=== PATIENT | female | born 1950 | race Caucasian/White ===

== ENCOUNTER 2016-11-09 14:17 | Emergency (ER) | payer MEDICARE, MEDICAID ==
[~2016-11-09] VITALS: Ht 160 cm; Wt 72.6 kg
[~2016-11-09 14:17] MED LIST: ALBUAER3 IN; CALC200S7; CALC600T80 PO; CITA20TA3 PO; FLU05NSL; FURO20TA3 PO; LAC30LQ PO; LEVO-28 PO; MONT10TA34 PO; OMEP20CA5 PO; SPIR50TA23 PO; TRAM-297 PO
[2016-11-09] MEDS ORDERED: SODIUM CHLORIDE 0.9% 250 ML IV ONE (15:43)
[2016-11-09] MEDS ORDERED: NALBUPHINE HCL 10 MG/1ml INJECTION IV ONE (15:45)
[2016-11-09] MEDS ORDERED: METOCLOPRAMIDE HCL 5MG/ml INJ 2ml VIAL IV ONE (15:45)
[2016-11-09 16:19] LABS: Hematocrit 41.4 % (36.0-46.0); Hemoglobin 14.1 g/dL (12.2-16.2); Mean Corpuscular Hemoglobin 32.3 pg (28.0-32.0); Mean Corpuscular Hgb Conc. 34.1 g/dL (32.0-36.0); Mean Corpuscular Volume 94.6 fL (80.0-100.0); Mean Platelet Volume 9.6 fL (7.4-10.4); Platelet Count (auto) 153 10^3/uL (140-450); Red Cell Distribution Width 15.6 % (11.6-16.0); White Blood Cell 5.4 10^3/uL (4.4-10.8)
[2016-11-09 16:27] LABS: Urine Bilirubin Negative (Negative); Urine Blood Negative /uL (Negative); Urine Color Yellow (Yellow); Urine Glucose Normal (Normal); Urine Hyaline Cast FEW /lpf (0 - 2); Urine Ketone Negative (Negative); Urine Nitrite Negative (Negative); Urine RBC <1 /hpf (0 - 4); Urine Squamous Epithelial Cell FEW /hpf (<5); Urine Urobilinogen Normal (Negative); Urine pH 6.5 (5.0-8.0)
[2016-11-09 16:36] LABS: Albumin 2.5 g/dL (3.4-5.0); BUN/Creatinine Ratio 15.7; Calcium 9.1 mg/dL (8.5-10.1)
[2016-11-09 16:39] LABS: Total Protein 6.5 g/dL (6.4-8.2)
[2016-11-09 16:52] LABS: Metamyelocytes % 0; Myelocytes % 0; Promyelocytes % 0; Reactive Lymphocytes 0
[2016-11-09 17:38] VITALS: BP 135/80
[2016-11-09 18:02] LABS: Anisocytosis Slight
[2016-11-09 18:08] LABS: Platelet Estimate Adequate
== END 2016-11-09 17:32 | disposition home or self-care (01) ==
LOC: EDBD 14:17 → ER 14:17
DX: M54.16 Radiculopathy, lumbar region (principal); M79.1 Myalgia; G89.29 Other chronic pain; M54.5 Low back pain; K74.60 Unspecified cirrhosis of liver; I25.810 Atherosclerosis of coronary artery bypass graft(s) without angina pectoris; I13.0 Hypertensive heart and chronic kidney disease with heart failure and stage 1 through stage 4 chronic kidney disease, or unspecified chronic kidney disease; J44.9 Chronic obstructive pulmonary disease, unspecified; N18.9 Chronic kidney disease, unspecified; I50.9 Heart failure, unspecified; Z86.73 Personal history of transient ischemic attack (TIA), and cerebral infarction without residual deficits; K21.9 Gastro-esophageal reflux disease without esophagitis; Z90.49 Acquired absence of other specified parts of digestive tract; G51.0 Bell's palsy; E43 Unspecified severe protein-calorie malnutrition; Z68.28 Body mass index [BMI] 28.0-28.9, adult
CPT/HCPCS: 36415; 71020; 72131; 80053; 81001; 83735; 84443; 85007; 85027; 96361; 96374; 96375; 99285; J2300; J2765; J7030

== ENCOUNTER 2016-11-25 18:51 | Emergency (ER) | payer MEDICARE, MEDICAID ==
[~2016-11-25] VITALS: Ht 162.6 cm; Wt 76.2 kg
[~2016-11-25 18:51] MED LIST changes: -OMEP20CA5 PO; +OMEP20CA74 PO
[2016-11-25 20:40] LABS: Basophils # (auto) 0 uL; Basophils % (auto) 0.3 % (0.0-2.0); DEFINITIVE VIEW TRANSMISSION; Eosinophils # (auto) 0 uL; Eosinophils % (auto) 0.2 % (0.0-7.0); Hematocrit 43.3 % (36.0-46.0); Hemoglobin 14.6 g/dL (12.2-16.2); Lymphocytes # (auto) 1.4 uL; Mean Corpuscular Hemoglobin 32.4 pg (28.0-32.0); Mean Corpuscular Hgb Conc. 33.7 g/dL (32.0-36.0); Mean Corpuscular Volume 96.2 fL (80.0-100.0); Mean Platelet Volume 10.4 fL (7.4-10.4); Monocytes # (auto) 1.7 uL; Monocytes % (auto) 17.4 % (0.0-12.0); Neutrophils # (auto) 6.8 uL; Neutrophils % (auto) 68.1 % (37.0-80.0); Platelet Count (auto) 207 10^3/uL (140-450); Red Cell Distribution Width 14.9 % (11.6-16.0)
[2016-11-25 20:52] LABS: Albumin 2.6 g/dL (3.4-5.0); Amylase 88 U/L (25-115); Anion Gap 14 (5-15); Aspartate Aminotransferase 30 U/L (15-37); BUN/Creatinine Ratio 25.2; Blood Urea Nitrogen 30 mg/dL (7-18); Carbon Dioxide 22 mmol/L (21-32); Chloride 107 mmol/L (98-107); GFR African American 58 mL/min; GFR Non-African American 48 mL/min; Glucose 112 mg/dL (74-106); Potassium 4.2 mmol/L (3.5-5.1); Sodium 143 mmol/L (136-145)
[2016-11-25 20:54] LABS: Alkaline Phosphatase 124 U/L (45-117); Bilirubin, Total 0.8 mg/dL (0.2-1.0); Total Protein 6.7 g/dL (6.4-8.2)
[2016-11-25 21:42] VITALS: BP 136/78
[2016-11-25] MEDS ORDERED: MORPHINE SULFATE 4 MG/ML SYRG IV ONE (22:00)
[2016-11-25] MEDS ORDERED: ONDANSETRON HCL 4 MG/2 ML VIAL IV ONE (22:00)
[2016-11-25 22:39] LABS: Urine Bilirubin Negative (Negative); Urine Blood Negative /uL (Negative); Urine Ca Oxalate Crystal FEW (None Seen); Urine Color Yellow (Yellow); Urine Glucose Normal (Normal); Urine Hyaline Cast MANY /lpf (0 - 2); Urine Ketone Negative (Negative); Urine Mucus FEW (None Seen); Urine Nitrite Negative (Negative); Urine RBC 1 /hpf (0 - 4); Urine Squamous Epithelial Cell FEW /hpf (<5); Urine Urobilinogen Normal (Negative); Urine pH 5.5 (5.0-8.0)
== END 2016-11-25 23:19 | disposition home or self-care (01) ==
LOC: EDBD 18:51 → ER 18:58
DX: K80.80 Other cholelithiasis without obstruction (principal); N20.0 Calculus of kidney; I25.810 Atherosclerosis of coronary artery bypass graft(s) without angina pectoris; Z95.1 Presence of aortocoronary bypass graft; I50.9 Heart failure, unspecified; N18.9 Chronic kidney disease, unspecified; J44.9 Chronic obstructive pulmonary disease, unspecified; K21.9 Gastro-esophageal reflux disease without esophagitis; I13.0 Hypertensive heart and chronic kidney disease with heart failure and stage 1 through stage 4 chronic kidney disease, or unspecified chronic kidney disease; Z87.440 Personal history of urinary (tract) infections; Z90.49 Acquired absence of other specified parts of digestive tract; Z79.899 Other long term (current) drug therapy
CPT/HCPCS: 36415; 74176; 80053; 81001; 82140; 82150; 83690; 83735; 84484; 85025; 93005; 96374; 96375; 99285; J2270; J2405